=== PATIENT | male | born 2000 | race Caucasian/White ===

== ENCOUNTER 2025-05-02 20:12 | Emergency (ER) | payer SELFPAY ==
[2025-05-02 20:49] VITALS: BP 134/69; PULSE 58; RESP 16; TEMP 36.7; O2SAT 95; BMI 44.4
[2025-05-02 21:14] LABS: Rapid Strep A Test Negative (Negative)
[2025-05-02 21:45] VITALS: BP 139/75; PULSE 72; O2SAT 99
--- NOTE | 2025-05-02 22:19 | XRR_ITS ---
PROCEDURE INFORMATION: Exam: XR Chest Exam date and time: 05/02/2025 10:31 PM Age: 24 years old Clinical indication: Cough and fever; Cough with fever; Additional info: Cough/chest tightness TECHNIQUE: Imaging protocol: Radiologic exam of the chest. Views: 2 views. COMPARISON: No relevant prior studies available. FINDINGS: Lungs: Unremarkable. No consolidation. Pleural spaces: Unremarkable. No pleural effusion. No pneumothorax. Heart/Mediastinum: Unremarkable. No cardiomegaly. Bones/joints: Unremarkable. XR/XR chest 2V* [id number] IMPRESSION: No acute findings.
[2025-05-02 22:35] LABS: Respiratory Syncytial Virus Ce NEGATIVE (Negative); SARS-CoV-2 PCR NEGATIVE (Negative)
[2025-05-02 23:30] VITALS: BP 131/94; PULSE 62; O2SAT 100
--- NOTE | 2025-05-03 00:49 | ED_ITS ---
HPI - General Adult General: Chief complaint: Nausea/Vomiting/Diarrhea Stated complaint: Sore Throat Time Seen by Provider: 05/02/25 21:43 History of Present Illness: Patient is a 24-year-old male presenting with a chief complaint of headaches, sore throat, malaise, dry cough, diarrhea for few days. Patient has had a subjective fever at home. Patient states that he has chest pain occasionally with eating and yawning but his chest pain-free now. He does not feel short of breath denies productive cough or hemoptysis. Patient denies significant abdominal pain though he states he has been experiencing some abdominal cramping. No dysuria, hematuria or blood in stool. He does not have any significant medical history. He does not report any surgeries. Patient does not report any sick contacts. Related Data Previous Rx's ?Medication ?Instructions ?Recorded azithromycin 500 mg tablet 500 mg PO DAILY 5 days #5 t abs 05/01/25 (Zithromax) ondansetron HCl 4 mg tablet 4 mg PO Q6H PRN nausea and 05/03/25 vomiting #20 tabs Allergies Allergy/AdvReac Type Severity Reaction Status Date / Time Penicillins Allergy ALGY-Rash Verified 05/01/25 10:34 PFSH ED PFSH: Social History Smoking and tobacco/nicotine status: current some day tobacco/nicotine user Physical Exam Narrative: EXAM NARRATIVE: Vital signs were reviewed. Patient is alert and oriented. Patient is breathing comfortably, no increased WOB or accessory muscle use. SpO2 is above 95% on RA. Tonsils are not swollen, there is no exudates, it is mildly erythematous. Patient has clear lungs b/l, no rhonchi, wheezing or crackles. No hypotension or tachycardia. Abdomen is soft, nondistended and nontender. Patient is moving all extremities, no deformity or gross injury. No lower extremity edema or asymmetry. Course Vital Signs: Vital signs: Vital Signs Temperature 98.1 F 05/02/25 20:49 Pulse Rate 62 05/02/25 23:30 Respiratory Rate 16 05/02/25 20:49 Blood Pressure 131/94 05/02/25 23:30 Pulse Oximetry 100 05/02/25 23:30 Oxygen Delivery Me thod Room Air 12/28/25 23:30 MDM - General Adult Medical Decision Making 24yo M w/cc of sore throat, headaches, cough and bodyaches for several days. Differential diagnosis includes, but is not limited to, viral upper respiratory infection, streptococcal pharyngitis, otitis media, bronchiolitis, asthma/reactive airway disease, pneumonia, other. Patient was evaluated with influenza COVID, RSV and strep screen, all negative. Chest x-ray does not show acute findings. Presentation is most consistent with viral syndrome. Patient was counseled on supportive care at home, given return precautions and discharged in stable condition with recommendation for outpatient follow-up with primary care nurse or doctor. Lab Data Radiology Impressions Chest X-Ray 05/02/25 22:19 IMPRESSION: No acute findings. Laboratory Results Influenza A (PCR) Negative (Negative) 05/02/25 21:48 Influenza Type B (PCR) Negative (Negative) 05/02/25 21:48 RSV (PCR) Negative (Negative) 05/02/25 21:48 SARS-CoV-2 (PCR) Negative (Negative) 05/02/25 21:48 Group A Strep Rapid Negative (Negative) 05/02/25 21:01 All radiology interpretation(s) finalized by discharge Discharge Plan Discharge Patient Disposition: Home Clinical Impression: Viral URI Condition: Stable Prescriptions: New ondansetron HCl 4 mg tablet 4 mg PO Q6H PRN (Reason: nausea and vomiting) Qty: 20 0RF No Action azithromycin [Zithromax] 500 mg tablet 500 mg PO DAILY 5 Days Qty: 5 0RF Discharge Orders: Discharge ED (Routine); Ordered 05/03/25 Ordered By: Sharmaine Finnegan Patient Instructions: Opioid Safety, Pain Management, Patient Portal & Carolin Instructions, Viral Syndrome (ED) Activity Restrictions/Additional Instructions: Please continue to monitor your condition closely at home. Take Ibuprofen 400mg and Tylenol 500-1000mg every six hours for pain and inflammation. Take Zofran for nausea and vomiting. Drink plenty of fluids and get additional rest. If your condition worsens or additional concerns arise, please return promptly to the emergency department for reassessment. Follow up with your primary care doctor in one week. Print Language: Chilean Coding Level of Care Code ED Customer Servicer for Rip Jenkins
== END 2025-05-03 01:04 | disposition home or self-care (01) ==
PROVIDERS: Physician Assistant; Emergency Provider Emergency Medicine
DX: J06.9 Acute upper respiratory infection, unspecified (principal); Z11.52 Encounter for screening for COVID-19; Z72.0 Tobacco use
CPT/HCPCS: 71046; 87081; 87637; 87880; 99284